=== PATIENT | female | born 1965 | race African-American/Black ===

== ENCOUNTER → 2017-09-01 | Outpatient (CLI) | payer OTHER ==
--- NOTE | 2017-09-01 15:47 | KCIC ---
EXAM: Lumbar spine MRI without contrast. HISTORY: Lower back pain. TECHNIQUE: Multiplanar, multisequence magnetic resonance imaging of the lumbar spine was performed without contrast. COMPARISON: None. FINDINGS: There is minimal grade 1 anterolisthesis of L4 and L5, measuring 2 mm. There is degenerative endplate remodeling with associated signal change along the anterior inferior aspect of L5. There is disc desiccation at L5-S1, and to lesser extent, L2-L3. No the conus terminates at L1. There is edema within the right L4 and L5 pedicles, right L4-L5 facet joint and surrounding soft tissues. At L1-L2, there is no stenosis. At L2-L3, there is a disc bulge and endplate remodeling. There is mild facet arthropathy. There is no stenosis. At L3-L4, there is a disc bulge. There is mild facet arthropathy. There is no stenosis. At L4-L5, there is a disc bulge. There is moderate right facet arthropathy. There is no stenosis. At L5-S1, there is a disc bulge and endplate remodeling. There is mild bilateral facet arthropathy. There is a 5 mm left facet joint synovial cyst projecting into the left extraforaminal spaces. There is mild bilateral foraminal stenosis. IMPRESSION: 1. Mild degenerative change throughout the lumbar spine, described in detail above. This results in mild bilateral foraminal stenosis at L1-L2. 2. Edema within the right L4 and L5 pedicles, right facet joint and surrounding soft tissues. This may be due to an osseous stress reaction or inflammatory in etiology. Electronically signed by: Jeniffer Sánchez MD (09/01/2017 2:26 PM) [email or web address]
== END | disposition home or self-care (01) ==
LOC: KCIC MRI 13:42
PROVIDERS: ATTEND Internal Medicine Rheumatology
DX: M48.061 Spinal stenosis, lumbar region without neurogenic claudication (principal)
CPT/HCPCS: 72148

== ENCOUNTER → 2018-11-03 | Outpatient (CLI) | payer OTHER ==
--- NOTE | 2018-11-03 08:53 | KCIC ---
Five-view lumbar spine 11/03/2018 Clinical indications: Lumbar radiculopathy. COMPARISON: MRI lumbar spine 09/01/2017. FINDINGS: There are 5 nonrib-bearing lumbar-type vertebral bodies with the 1st considered L1. There is minimal spinal curvature, likely positional. Vertebral body heights are maintained. There is minimal lumbar spondylosis at L2-L3 and L3-L4 with marginal osteophyte formation, and mild at L5-S1 with disc space narrowing. Bilateral L4-L5 and L5-S1 facet hypertrophy, greatest on the right. No listhesis on neutral, flexion or extension views. IMPRESSION: 1. Lumbar spondylosis, greatest to a mild degree, at L5-S1. 2. No evidence of listhesis. Electronically signed by: Grayson Fernandez MD (11/03/2018 8:48 AM) [facility]
--- NOTE | 2018-11-03 09:41 | KCIC ---
EXAMINATION: Magnetic resonance imaging (MRI) of the lumbar spine without contrast 11/03/2018 8:45 AM HISTORY: Lumbar radiculopathy. Bilateral lower extremity numbness TECHNIQUE: Multiplanar multi-weighted MRI of the lumbar spine was performed without intravenous contrast using the standard lumbar spine protocol. Contrast information: None administered. COMPARISON: Lumbar spine MRI September 01, 2017 FINDINGS: Alignment of the lumbar spine appears normal. Vertebral body heights are maintained. Marrow signal intensity is normal in all sequences. There is mild disc height loss at L2-L3, not significant changed. Mild anterior marginal osteophytosis is noted throughout the lumbar spine. Mild endplate edema is identified involving the inferior endplate of L5, not significantly progressed since September 01, 2017. The conus medullaris terminates at L1. Distal spinal cord signal intensity is normal in all sequences. Disc desiccation is identified at all levels of the lumbar spine, sparing L4-L5 and L1-L2. Abdominal aorta is normal in caliber. No suspicious retroperitoneal abnormality is identified. Visualized portions of the sacrum appear intact. L3-L4: There is mild disc bulge. There is mild to moderate facet arthropathy. Mild left neuroforaminal stenosis. No spinal canal stenosis. Findings are not significantly changed since the prior examination. L4-L5: There is a moderate disc bulge with central annular fissure. There is moderate to severe right and moderate left facet arthropathy. There is mild bilateral neuroforaminal stenosis. No significant spinal canal stenosis. Findings are not significantly changed. L5-S1: There is a mild circumferential disc bulge with central disc protrusion. There is moderate facet arthropathy. There is moderate left neuroforaminal stenosis. No significant spinal canal stenosis. Findings are not significant change since prior examination. IMPRESSION: Mild degenerative changes of lumbar spine, not significantly changed since the prior examination from September 01, 2017. Electronically signed by: Galilea Carlton MD (11/03/2018 9:36 AM) [facility]
== END | disposition home or self-care (01) ==
LOC: KCIC 07:45
PROVIDERS: ATTEND Anesthesiology
DX: M47.26 Other spondylosis with radiculopathy, lumbar region (principal); M51.27 Other intervertebral disc displacement, lumbosacral region; M47.817 Spondylosis without myelopathy or radiculopathy, lumbosacral region; M25.78 Osteophyte, vertebrae; M48.07 Spinal stenosis, lumbosacral region
CPT/HCPCS: 72114; 72148

== ENCOUNTER → 2020-10-11 | Outpatient (CLI) | payer OTHER ==
--- NOTE | 2020-10-11 10:58 | KCIC ---
EXAM: Right knee, 4 views. HISTORY: Pain. COMPARISON: None. FINDINGS: 4 views of the right knee are obtained. There is mild medial compartment joint space narrow ing and mild proximal femoral spurring. There is no fracture, dislocation or subluxation. There is tr tj joint fluid. IMPRESSION: Mild medial compartment predominant osteoporosis arthritis of the right knee with trace j oint fluid. Electronically signed by: Jeniffer Sánchez MD (10/11/2020 10:56 AM) [id number]
--- NOTE | 2020-10-11 11:16 | KCIC ---
EXAM: Pelvis and left hip, 2 views. HISTORY: Pain. COMPARISON: None. FINDINGS: A frontal view the pelvis and frog-leg views left hip are obtained. There is no fracture, d islocation or subluxation. The femoral head is normal in configuration. There is degenerative change at the lower lumbar levels. There are pelvic phleboliths. IMPRESSION: No acute osseous finding. Electronically signed by: Jeniffer Sánchez MD (10/11/2020 11:09 AM) [id number]
== END ==
LOC: KCIC 09:29
PROVIDERS: ATTEND Family Medicine Sports Medicine
DX: M17.11 Unilateral primary osteoarthritis, right knee (principal); M81.8 Other osteoporosis without current pathological fracture; M47.816 Spondylosis without myelopathy or radiculopathy, lumbar region; I87.8 Other specified disorders of veins
CPT/HCPCS: 73501; 73564